=== PATIENT | female | born 2000 | race African-American/Black ===

== ENCOUNTER 2024-06-12 16:16 | Emergency (ER) | payer MEDICAID ==
[~2024-06-12] VITALS: Ht 165.1 cm; Wt 96.1 kg
[2024-06-12 16:37] VITALS: PULSE 134
--- NOTE | 2024-06-12 16:39 | ED.PDOC ---
History of Present Illness HPI Comments 23 year old female presents to the ED with chief complaint of flu-like illness during . Patient reports that she is currently 4 weeks and has been experiencing symptoms of nausea, vomiting, headache, cough, fever, fast heart rate, and sore throat for the past few days. Patient relays that she had contacted her PCP and OBGYN, both advising her to come to the ED for further evaluation as due to her history of DM, she is considered a high risk . Patient denies any chest pain, abdominal pain, dizziness, hematemesis, dysuria, or diarrhea. Patient is . Chief Complaint: Flu like Time Seen by MD: 16:35 Reviewed Notes: Nurses Notes, Medications, Allergies Allergies: Coded Allergies: NO KNOWN ALLERGIES (Unverified , 08/25/23) Information Source: Patient, Relative (Mother) Mode of Arrival: Ambulatory Severity: Moderate Timing: Days Duration: Since onset Prehospital treatment: None Past Medical History PAST MEDICAL HISTORY: Asthma, DM Past Medical History (Other): Patient states she is currently four weeks Surgical History: Denies all surgeries GROUNDSMAN History: No Pertinent GROUNDSMAN History 1 Para 0 Family History Family History: Reviewed,noncontributory to illness Social History Smoker: Non-Smoker Alcohol: Denies ETOH Use Drugs: Denies Drug Use Lives In: Home Constitutional: reports: fever; denies: chills, diaphoresis, fatigue, malaise, sweats, weakness, others EENTM: reports: throat pain; denies: blurred vision, double vision, ear bleeding, ear discharge, ear drainage, ear pain, ear ringing, eye pain, eye redness, hearing loss, mouth pain, mouth swelling, nasal discharge, nose bl eeding, nose congestion, nose pain, photophobia, tearing, throat swelling, voice changes, others Respiratory: reports: cough; denies: hemoptysis, orthopnea, SOB at rest, shortness of breath, SOB with excertion, stridor, wheezing, others Cardiovascular: reports: others (Tachycardic); denies: chest pain, dizzy spells, diaphoresis, Dyspnea on exertion, edema, irregular heart beat, left arm pain, lightheadedness, palpitations, PND, syncope Gastrointestinal: reports: nausea, vomiting; denies: abdomen distended, abdominal pain, blood streaked bowels, constipated, diarrhea, dysphagia, difficulty swallowing, hematemesis, melena, poor appetite, poor fluid intake, rectal bleeding, rectal pain, others Genitourinary: reports: ; denies: abnormal vagina bleeding, burning, dyspareunia, dysuria, flank pain, frequency, hematuria, incontinence, pain, vagina discharge, urgency, others Neurological: reports: headache; denies: dizziness, fainting, left sided numbness, left sided weakness, numbness, paresthesia, pre-existing deficit, right sided numbness, right sided weakness, seizure, speech problems, tingling, tremors, weakness, others Musculoskeletal: denies: back pain, gout, joint pain, joint swelling, muscle pain, muscle stiffness, neck pain, others Integumetry: denies: bruises, change in color, change in hair/nails, dryness, laceration, lesions, lumps, rash, wounds, others Allergic/Immunocompromised: denies: Difficulty Healing, Frequent Infections, Hives, Itching, others Hematologic/Lymphatic: denies: anemia, blood clots, easy bleeding, easy bruising, swollen glands, others Endocrine: denies: excessive hunger, excessive sweating, excessive thirst, excessive urination, flushing, intolerance to cold, intolerance to heat, unexplained weight gain, unexplained weight loss, others Psychiatric: denies: anxiety, bipolar disorder, depression, hopeless, panic disorder, schizophrenia, sleepless, suicidal, others All Other Systems: Reviewed and Negative Physical Exam General Appearance: Moderate Distress ([id number]-muydndcn distress at time of evaluation.), Obese HEENT: Normal ENT Inspection, Pharynx Normal, TMs Normal Neck: Full Range of Motion, Non-Tender, Normal, Normal Inspection Respiratory: Chest Non-Tender, Lungs Clear, No Accessory Muscle Use, No Respiratory Distress, Normal Breath Sounds Cardiovascular: No Edema, No JVD, No Murmur, No Gallop, Normal Peripheral Pulses, Regular Rate/Rhythm Breast Exam: Deferred Gastrointestinal: No Organomegaly, Non Tender, No Pulsatile Mass, Normal Bowel Sounds, Soft Genitalia: Deferred Pelvic: Deferred Rectal: Deferred Extremities: No calf tenderness, Normal capillary refill, Normal inspection, Normal range of motion, Non-tender, No pedal edema Neurologic: Alert, No Motor Deficits, Normal Affect, Normal Mood, No Sensory Deficits Cerebellar Function: Normal Reflexes: Normal Skin: Dry, Normal Color, Warm Lymphatic: No Adenopathy Was a procedure done? Was a procedure done?: No Differential Dx Considerations may include: COVID 19, influenza a/B, sepsis, electrolyte abnormality, hyperglycemia X-Ray, Labs, Meds, VS Vital Signs Date Time Temp Pulse Resp B/P (MAP) Pulse Ox O2 Delivery O2 Flow Rate FiO2 06/12/24 18:14 98.5 98.5 06/12/24 18:14 98.5 06/12/24 17:19 20 97 Room Air* 0 21 06/12/24 17:11 100.2 06/12/24 17:11 100.2 100.2 06/12/24 16:37 134 06/12/24 16:33 100.2 142 16 126/81 (96) 100 Lab Test 06/12/24 18:15 06/12/24 16:48 06/12/24 16:42 Range/Units Lactic Acid Level 0.9 0.4-2.0 mmol/L White Blood Count 7.8 4.4-10.8 10^3/uL Red Blood Count 5.03 4.0-5.20 10^6/uL Hemoglobin 14.2 12.2-16.2 g/dL Hematocrit 42.3 36.0-46.0 % Mean Corpuscular Volume 84.1 80.0-100.0 fL Mean Corpuscular Hemoglobin 28.2 28.0-32.0 pg Mean Corpuscular Hemoglobin Concent 33.5 32.0-36.0 g/dL Red Cell Distribution Width 13.6 11.8-14.3 % Platelet Count 328 140-450 10^3/uL Mean Platelet Volume 8.7 6.9-10.8 fL Neutrophils (%) (Auto) 82.8 H 37.0-80.0 % Lymphocytes (%) (Auto) 9.9 L 10.0-50.0 % Monocytes (%) (Auto) 6.1 0.0-12.0 % Eosinophils (%) (Auto) 0.8 0.0-7.0 % Basophils (%) (Auto) 0.4 0.0-2.0 % Neutrophils # (Auto) 6.5 1.6-8.6 10 ^3/uL Lymphocytes # (Auto) 0.8 0.4-5.4 10 ^3/uL Monocytes # (Auto) 0.5 0-1.3 10 ^3/uL Eosinophils # (Auto) 0.1 0-0.8 10 ^3/uL Basophils # (Auto) 0 0-0.2 10 ^3/uL Nucleated Red Blood Cells 0.1 % Sodium Level 130 L 136-145 mmol/L Potassium Level 3.7 3.5-5.1 mmol/L Chloride Level 100 98-107 mmol/L Carbon Dioxide Level 21 20-31 mmol/L Anion Gap 9 5-15 Blood Urea Nitrogen 7 L 9-23 mg/dL Creatinine 1.07 H 0.550-1.02 mg/dL Glomerular Filtration Rate Calc 76 >90 mL/min BUN/Creatinine Ratio 6.5 L 10.0-20.0 Serum Glucose 240 H 74-106 mg/dL Calcium Level 10.1 8.7-10.4 mg/dL Total Bilirubin 0.4 0.2-1.0 mg/dL Aspartate Amino Transferase (AST) 12 L 13-40 U/L Alanine Aminotransferase (ALT) 13 7-40 U/L Alkaline Phosphatase 103 46-116 U/L Troponin I High Sensitivity < 3 L </=34 ng/L B-Type Natriuretic Peptide 6.54 0-100 pg/mL Total Protein 7.9 5.7-8.2 g/dL Albumin 5.0 H 3.2-4.8 g/dL Lipase 28 12-53 U/L Beta HCG, Quantitative 8602.3 H 1.5-4.2 mIU/mL Influenza Type A Antigen Positive Negative Influenza Type B Antigen Negative Negative SARS-CoV-2 Antigen (Rapid) Negative NEGATIVE Current Medications Medications (Trade) Dose Ordered Sig/[place] Route Start Time Stop Time Status Last Admin Ipratropium [place] (Atrovent Medneb) 0.5 mg ONCE ONCE NEB 06/12/24 17:00 06/12/24 17:01 DC 06/12/24 17:18 Acetaminophen (Tylenol Tablet Or Capsule) 1,000 mg ONCE ONCE PO 06/12/24 17:15 06/12/24 17:16 DC 06/12/24 17:11 Levalbuterol HCl (Xopenex Medneb) 1.25 mg ONCE ONCE NEB 06/12/24 17:15 06/12/24 17:16 DC 06/12/24 17:19 X-Ray, Labs, Meds, VS Comment All studies performed in the ED were evaluated by me personally. Serum laboratories revealed a mild hyponatremia and an elevated blood glucose. Swabs studies confirmed a influenza a diagnosis. Due to the patient's tachycardic presentation at arrival as well as mildly concerning blood sugar issues, I consulted Dr. Russell and and advised her of patient presentation as well as laboratory results. She advised sending the patient home on 1000 metformin at night and additionally, advised immediate follow up with primary care provider and soiled linen distributor for long-term management. Time of 1ST Reevaluation: 19:16 Reevaluation 1ST: Improved Consultation: PCP, industrial spraypainter Patient Education/Counseling: Diagnosis, Treatment Family Education/Counseling: Diagnosis, Treatment Departure 1 Departure Time of Disposition: 19:17 Impression: Primary Impression: Influenza A Additional Impression: Hyperglycemia due to diabetes mellitus Disposition: HOME / SELF CARE / HOMELESS Condition: Stable Additional Instructions: Advised patient utilize medication as directed and additionally, follow up with primary care and soiled linen distributor as soon as possible for continued evaluation and long- term management of her comorbidities throughout her event. e-Prescriptions Acetaminophen (Acetaminophen) 500 Mg Tab 500 MG PO Q4HP PRN, #30 TAB Prov: MARIO WEEKS PAC 06/12/24 Oseltamivir Phosphate (Tamiflu) 75 Mg Cap 150 MG PO BID for 5 Days, #20 CAP Prov: MARIO WEEKS PAC 06/12/24 Metformin Hydrochloride (Metformin Hcl) 500 Mg Tab 1000 MG PO QPM for 30 Days, #60 TAB Prov: MAR[facility] WEEKS [facility] 06/12/24 Discharged With: Self, Relative (Mother) Critical Care Note Critical Care Time?: No Stability Stability form required: No Heart Score Heart Score: Heart Score Response (Comments) Value History N/A 0 EKG N/A 0 Age N/A 0 Risk Factors N/A 0 Troponin N/A 0 Total 0 I personally scribed for MARIO WEEKS PAC ([email or web address]) on 06/12/24 at 16:39. Electronically submitted by Elton Hicks ([email or web address]). MARIO WEEKS Jun 12, 2024 16:39
[2024-06-12] MEDS ORDERED: ALBUTEROL SULF 2.5 MG/0.5ML(0.5%) NEB SOLN NEB ONE (17:00)
[2024-06-12] MEDS: ACETAMINOPHEN 325 MG TAB PO ONE (17:04)
[2024-06-12] MEDS: ACETAMINOPHEN 500 MG TAB or CAP PO ONE (17:11)
[2024-06-12] MEDS: IPRATROPIUM BROM 0.5 MG/2.5ML INH SOL NEB ONE (17:18)
[2024-06-12 17:19] VITALS: RESP 20
[2024-06-12] MEDS: LEVALBUTEROL HCL 1.25 MG/3 ML NEB NEB ONE (17:19)
[2024-06-12] MEDS: LEVALBUTEROL HCL 1.25 MG/3 ML NEB ONE (17:21)
[2024-06-12 17:36] LABS: Basophils # (auto) 0 10 ^3/uL (0-0.2); Basophils % (auto) 0.4 % (0.0-2.0); Eosinophils # (auto) 0.1 10 ^3/uL (0-0.8); Eosinophils % (auto) 0.8 % (0.0-7.0); Hematocrit 42.3 % (36.0-46.0); Hemoglobin 14.2 g/dL (12.2-16.2); Lymphocytes # (auto) 0.8 10 ^3/uL (0.4-5.4); Lymphocytes % (auto) 9.9 % (10.0-50.0); Mean Corpuscular Hemoglobin 28.2 pg (28.0-32.0); Mean Corpuscular Hgb Conc. 33.5 g/dL (32.0-36.0); Mean Corpuscular Volume 84.1 fL (80.0-100.0); Monocytes # (auto) 0.5 10 ^3/uL (0-1.3); Monocytes % (auto) 6.1 % (0.0-12.0); Neutrophils # (auto) 6.5 10 ^3/uL (1.6-8.6); Neutrophils % (auto) 82.8 % (37.0-80.0); Nucleated Red Blood Cells % 0.1 %; Platelet Count (auto) 328 10^3/uL (140-450); Red Blood Cells 5.03 10^6/uL (4.0-5.20); Red Cell Distribution Width 13.6 % (11.8-14.3); White Blood Cell 7.8 10^3/uL (4.4-10.8)
[2024-06-12 17:59] LABS: Alanine Aminotransferase 13 U/L (7-40); Alkaline Phosphatase 103 U/L (46-116); Anion Gap 9 (5-15); BUN/Creatinine Ratio 6.5 (10.0-20.0); Bilirubin, Total 0.4 mg/dL (0.2-1.0); Calcium 10.1 mg/dL (8.7-10.4); Carbon Dioxide 21 mmol/L (20-31); Chloride 100 mmol/L (98-107); Potassium 3.7 mmol/L (3.5-5.1); Total Protein 7.9 g/dL (5.7-8.2)
[2024-06-12 18:17] LABS: Aspartate Aminotransferase 12 U/L (13-40); Blood Urea Nitrogen 7 mg/dL (9-23); Glucose 240 mg/dL (74-106); Sodium 130 mmol/L (136-145)
[2024-06-12 18:27] LABS: Lipase 28 U/L (12-53)
[2024-06-12 18:31] LABS: COVID19 ANTIGEN SOFIA FIA NEGATIVE (NEGATIVE)
[2024-06-12 18:32] LABS: Rapid Influenza B Negative (Negative)
[2024-06-12 18:42] LABS: Rapid Influenza A Positive (Negative)
[2024-06-12] MEDS ORDERED: ACET500T58 PO (19:19)
[2024-06-12] MEDS ORDERED: METF-370 PO (19:19)
[2024-06-12] MEDS ORDERED: TAMIFLU PO (19:19)
[2024-06-12 19:47] VITALS: BP 115/74; TEMP 99.7; O2SAT 100
--- NOTE | 2024-06-13 06:49 | ECG ---
[facility] Test Date: 2024-06-12 Test Time: 16:37:19 Pat Name: МАРИНА HORN Department: ER Room: Gender: F Pouncing Lathe Operator: DR COREAS: 2000 Requested By: MARIO WEEKS Order Number: [id number] Reading MD: Juan Longo Measurements Intervals [place] Rate: 134 P: 65 LA: 130 QRS: 70 QRSD: 68 T: -23 QT: 286 QTc: 427 Interpretive Statements Sinus tachycardia Borderline T abnormalities, diffuse leads Electronically Signed On 06-13-2024 10:30:38 PST by Juan Longo Please click the below link to view image of tracing.
== END 2024-06-12 19:49 | disposition home or self-care (01) ==
LOC: ER 16:16
DX: O99.511 Diseases of the respiratory system complicating pregnancy, first trimester (principal); R10.2 Pelvic and perineal pain; O24.111 Pre-existing type 2 diabetes mellitus, in pregnancy, first trimester; J10.1 Influenza due to other identified influenza virus with other respiratory manifestations; E11.65 Type 2 diabetes mellitus with hyperglycemia; J45.909 Unspecified asthma, uncomplicated; Z3A.01 Less than 8 weeks gestation of pregnancy; Z20.822 Contact with and (suspected) exposure to COVID-19; Z79.899 Other long term (current) drug therapy
CPT/HCPCS: 36415; 80053; 83605; 83690; 83880; 84484; 84702; 85025; 87426; 87804; 93005; 94640